=== PATIENT | female | born 1985 | race Two or more races ===

== ENCOUNTER 2023-01-14 21:43 | Emergency (ER) | payer OTHER ==
[~2023-01-14] VITALS: Ht 170.2 cm; Wt 73.0 kg
[2023-01-14] MEDS ORDERED: NEURONTIN300 MG (22:28)
[2023-01-14] MEDS ORDERED: VOLTAREN (22:29)
[2023-01-14 23:27] LABS: HEMATOCRIT 36.7 % (36.0-45.00); MEAN CELL VOLUME 87.6 fL (80.00-100.00); MEAN CORPUSCULAR HEMOGLOBIN 31.1 pg (27.00-32.0); MEAN CORPUSCULAR HGB CONC 35.5 g/dl (32.0-36.0); PLATELET COUNT 209 K/uL (150-450); RED BLOOD COUNT 4.19 M/uL (4.00-6.00); RED CELL DISTRIBUTION WIDTH 12.3 % (11.5-14.5)
[2023-01-15] MEDS ORDERED: SYMBICORT 16010.2 GM IH (04:12)
[2023-01-15] MEDS ORDERED: SINGULAIR10 MG PO (04:12)
== END 2023-01-15 04:15 ==
LOC: ER 21:43
DX: J45.991 Cough variant asthma (principal); J06.9 Acute upper respiratory infection, unspecified; Z20.822 Contact with and (suspected) exposure to COVID-19